=== PATIENT | female | born 1975 | race Caucasian/White ===

== ENCOUNTER 2016-09-17 12:42 | Emergency (ER) | payer OTHER ==
[~2016-09-17] VITALS: Ht 157.5 cm; Wt 120.6 kg
[~2016-09-17 12:42] MED LIST: AMLODIPINE BESY10 MG PO; AMOXICILLIN500 M1 PO; AMOXICILLIN500 MG PO; CETIRIZINE HCL10 M2 PO; ERYTHROMYC1 APPLICAT BOTH EYES; FLEXERIL5 MG PO; FLONASE16 G1 BOTH NARES; LISINOPRIL40 MG PO; LOPRESSOR50 MG PO; LYRICA150 MG PO; METHYLDOPA500 MG PO; MOTRIN800 MG PO; NAPROSYN500 MG PO; NAPROXEN500 M1 PO; NIFEDIPINE ER30 MG PO; NUVARING VAGIN1 EACH; NUVARING VAGIN1 EACH VG; OMEPRAZOLE20 M2 PO; OMEPRAZOLE20 MG PO; PERCOCET 5/31 TABLET PO; PHENTERMINE H37.5 MG PO; PRENATAL TABLE1 EAC3 PO; PRILOSEC40 MG PO; PROAIR HFA8.5 GM; PROZAC20 MG PO; SYMBICORT60 INHALAT; ULTRAM50 MG PO; XANAX0.5 MG PO; ZESTRIL,PRINIVI10 MG PO; ZITHROMAX250 MG PO; ZYRTEC10 M1 PO
[2016-09-17 13:16] VITALS: BP 168/94
[2016-09-18] MEDS ORDERED: PERCOCET 5/31 TABLET PO (01:45)
== END 2016-09-17 14:15 | disposition left against medical advice (07) ==
LOC: EME 12:42
DX: K08.89 Other specified disorders of teeth and supporting structures (principal); Z53.21 Procedure and treatment not carried out due to patient leaving prior to being seen by health care provider

== ENCOUNTER 2016-09-17 23:34 | Emergency (ER) | payer OTHER ==
[~2016-09-17] VITALS: Ht 160 cm; Wt 122.2 kg
[2016-09-18] MEDS ORDERED: PERCOCET 5/31 TABLET PO (01:45)
[2016-09-18 01:50] VITALS: BP 162/84
== END 2016-09-18 01:51 | disposition home or self-care (01) ==
LOC: EME 23:34
PROC: 3E0T3BZ Introduction of Anesthetic Agent into Peripheral Nerves and Plexi, Percutaneous Approach (ICD-10-PCS; principal; 2016-09-18)
DX: L03.211 Cellulitis of face (principal); K02.9 Dental caries, unspecified; I10 Essential (primary) hypertension; F17.200 Nicotine dependence, unspecified, uncomplicated; Z88.2 Allergy status to sulfonamides
CPT/HCPCS: 99281; 99284; J0295

== ENCOUNTER 2016-12-04 21:34 | Emergency (ER) | payer OTHER ==
[~2016-12-04] VITALS: Ht 167.6 cm; Wt 118.4 kg
[2016-12-04 23:20] VITALS: BP 147/89
== END 2016-12-04 23:24 | disposition home or self-care (01) ==
LOC: EME 21:34
DX: K02.9 Dental caries, unspecified (principal); K12.0 Recurrent oral aphthae; Z88.2 Allergy status to sulfonamides; Z88.1 Allergy status to other antibiotic agents
CPT/HCPCS: 99281; 99284